=== PATIENT | male | born 2000 | race Caucasian/White ===

== ENCOUNTER 2019-01-28 23:06 | Emergency (ER) | payer OTHER ==
[~2019-01-28] VITALS: Ht 180.3 cm; Wt 68.0 kg
[~2019-01-28 23:06] MED LIST: ADVAIR 250-501 EACH INH; FLONASE 0.05%50 MCG NASAL; FLOVENT HFA 2220 MC1; NEXIUM; NEXIUM40 MG PO; OMEPRAZOLE20 M2; OMEPRAZOLE40 MG PO; ONDANSETRON HCL4 M2 PO; PATANASE30.5 GM; SINGULAIR; VENTOLIN HFA INH8 GM; ZYRTEC10 M2
[2019-01-29 00:05] LABS: ABSOLUTE LYMPHOCYTES 1.3 thou/uL (0.8-5.3); ABSOLUTE MONOCYTES 0.7 thou/uL (0.0-1.2); ABSOLUTE NEUTROPHILS 6.7 thou/uL (1.6-8.1); BASOPHILS 0.2 %; EOSINOPHILS 0.5 %; HEMATOCRIT 44.9 % (42.0-52.0); HEMOGLOBIN 15.9 gm/dL (14.0-18.0); LYMPHOCYTES 14.8 %; MCH 33.6 pg (26.0-34.0); MCHC 35.3 g/dL (28.0-37.0); MONOCYTES 7.7 %; MPV 7.4 fl. (7.2-11.1); NUCLEATED RBCS 0 /100WBC; PLATELET COUNT* 321 thou/uL (150-400); POLYS 76.8 %; RBC 4.73 mil/uL (4.50-6.00); RDW-CV 12.8 % (10.5-14.5); WBC 8.7 thou/uL (4.0-11.0)
[2019-01-29 00:10] LABS: CALCIUM 9.8 mg/dL (8.5-10.1); CREATININE 1.2 mg/dL (0.6-1.3); POTASSIUM 3.3 mmol/L (3.5-5.1)
[2019-01-29 00:14] LABS: ALBUMIN 4.1 g/dL (3.4-5.0); TOTAL BILIRUBIN 0.6 mg/dL (<0.1-1.0); TOTAL PROTEIN 8.8 g/dL (6.4-8.2)
[2019-01-29 00:27] LABS: URINE BILIRUBIN NEGATIVE (Negative); URINE BLOOD NEGATIVE (Negative); URINE CLARITY CLEAR; URINE COLOR YELLOW; URINE GLUCOSE-RANDOM NEGATIVE (Negative); URINE KETONES NEGATIVE (Negative); URINE LEUKOCYTES-REFLEX NEGATIVE (Negative); URINE NITRITE-REFLEX NEGATIVE (Negative); URINE PROTEIN 1+ (Negative); URINE SPECIFIC GRAVITY >= 1.030 (1.005-1.030); URINE UROBILINOGEN 0.2 E.U./dl (0.2-1.0)
[2019-01-29 01:30] LABS: ESR (SEDRATE) 32 mm/hr (0-15)
[2019-01-29 02:36] LABS: CSF CLARITY CLEAR; CSF COLOR COLORLESS; CSF RBC 1 /mm3; CSF WBC 1 /mm3 (0-10); VOLUME 7.5 ml
[2019-01-29 02:37] LABS: CSF GLUCOSE 70 mg/dl (40-70); CSF PROTEIN 31.4 mg/dl (15-45)
[2019-01-29 03:08] VITALS: BP 107/52
--- NOTE | 2019-01-29 11:23 | EKG ---
[place] [address] ELECTROCARDIOGRAM REPORT Name: RAEGAN CARSON Room: [facility]#: [id number] Admission: 01/28/19 Attend Phys: Discharge: 01/29/19 Date of : [birth year] Report #: [id number] THIS REPORT FOR: //name// [facility] ED Test Date: 2019-01-28 Test Time: 23:11:34 Pat Name: RAEGAN CARSON Department: Room: Gender: M Caddie: TRAN : 2000 Requested By: Maira Madison Order Number: [id number] Eliza MD: Zaheer Chowdhury Measurements Intervals [place] Rate: 86 P: 78 [place]: 156 QRS: 58 QRSD: 99 T: 46 QT: 351 QTc: 420 Interpretive Statements Sinus rhythm LAE, consider biatrial enlargement ST elev, probable normal early repol pattern Baseline wander in lead(s) V4 No previous ECG available for comparison Electronically Signed On 01-29-2019 11:23:29 CDT by Zaheer Chowdhury [email or web address] <ELECTRONICALLY SIGNED> By: Zaheer Chowdhury MD, [facility] 01/29/19 1123 10 10 Zaheer Chowdhury MD, FAC /EPI
[2019-01-30] MEDS ORDERED: BUTALB-APAP-CA1 EACH PO (19:08)
[2019-01-30] MEDS ORDERED: ZOFRAN ODT4 MG PO (20:19)
== END 2019-01-29 03:08 | disposition home or self-care (01) ==
LOC: M.ERS 23:06
PROVIDERS: Emergency Medicine
DX: G43.909 Migraine, unspecified, not intractable, without status migrainosus (principal); R50.9 Fever, unspecified; J45.909 Unspecified asthma, uncomplicated; K21.9 Gastro-esophageal reflux disease without esophagitis

== ENCOUNTER 2019-01-30 15:44 | Emergency (ER) | payer OTHER ==
[~2019-01-30] VITALS: Ht 180.3 cm; Wt 72.6 kg
[2019-01-30 17:10] LABS: ABSOLUTE LYMPHOCYTES 1.4 thou/uL (0.8-5.3); ABSOLUTE MONOCYTES 0.5 thou/uL (0.0-1.2); ABSOLUTE NEUTROPHILS 6.4 thou/uL (1.6-8.1); BASOPHILS 0.4 %; EOSINOPHILS 0.5 %; HEMATOCRIT 39.4 % (42.0-52.0); LYMPHOCYTES 16.6 %; MCH 33.5 pg (26.0-34.0); MCV 95.6 fL (80.0-100.0); MONOCYTES 6.2 %; MPV 6.9 fl. (7.2-11.1); NUCLEATED RBCS 0 /100WBC; PLATELET COUNT* 280 thou/uL (150-400); POLYS 76.3 %; RBC 4.12 mil/uL (4.50-6.00); RDW-CV 12.5 % (10.5-14.5); WBC 8.4 thou/uL (4.0-11.0)
[2019-01-30 17:11] LABS: HEMOGLOBIN 13.8 gm/dL (14.0-18.0)
[2019-01-30 17:25] LABS: CALCIUM 8.9 mg/dL (8.5-10.1); POTASSIUM 4.1 mmol/L (3.5-5.1)
[2019-01-30 17:30] LABS: ALBUMIN 3.2 g/dL (3.4-5.0); TOTAL BILIRUBIN 0.6 mg/dL (<0.1-1.0); TOTAL PROTEIN 7.1 g/dL (6.4-8.2)
[2019-01-30] MEDS ORDERED: BUTALB-APAP-CA1 EACH PO (19:08)
[2019-01-30] MEDS ORDERED: ZOFRAN ODT4 MG PO (20:19)
[2019-01-30 20:26] VITALS: BP 101/81
== END 2019-01-30 20:27 | disposition home or self-care (01) ==
LOC: M.ERS 15:44
PROVIDERS: Personal Emergency Response Attendant
DX: G43.909 Migraine, unspecified, not intractable, without status migrainosus (principal); J45.909 Unspecified asthma, uncomplicated; K21.9 Gastro-esophageal reflux disease without esophagitis

== ENCOUNTER 2019-02-06 11:39 | Emergency (ER) | payer OTHER ==
[~2019-02-06] VITALS: Ht 180.3 cm; Wt 63.5 kg
[~2019-02-06 11:39] MED LIST changes: +BUTALB-APAP-CA1 EACH PO; +ZOFRAN ODT4 MG PO
[2019-02-06 12:12] LABS: URINE BLOOD 1+ (Negative); URINE CLARITY CLEAR; URINE COLOR YELLOW; URINE GLUCOSE-RANDOM NEGATIVE (Negative); URINE KETONES TRACE (Negative); URINE LEUKOCYTES-REFLEX NEGATIVE (Negative); URINE NITRITE-REFLEX NEGATIVE (Negative); URINE PROTEIN 2+ (Negative); URINE SPECIFIC GRAVITY >= 1.030 (1.005-1.030)
[2019-02-06 12:14] LABS: ICTOTEST (BILI CONFIRMATORY) Negative (Negative); URINE BILIRUBIN 1+ (Negative)
[2019-02-06 12:22] LABS: BACTERIA-REFLEX 1-9 Few /HPF (None Seen); CRYSTALS None Seen /LPF (None Seen); FINE GRANULAR CASTS 0-3 Few /LPF (None Seen); MUCUS >6 Heavy strn/LPF (None Seen); SQUAMOUS 0-3 Few /LPF (0-3); URINE RBC 3-10 Few /HPF (0-2); URINE WBC-REFLEX 6-15 Few /HPF (0-5)
[2019-02-06 12:29] LABS: AMP/METHAMP Negative (Negative); BARBITURATES POSITIVE (Negative); BENZODIAZEPINES Negative (Negative); COCAINE Negative (Negative); METHADONE Negative (Negative); OPIATES Negative (Negative); PCP Negative (Negative); THC POSITIVE (Negative)
[2019-02-06 12:35] LABS: HEMATOCRIT 40.5 % (42.0-52.0); HEMOGLOBIN 14.2 gm/dL (14.0-18.0); MCH 32.9 pg (26.0-34.0); MCHC 35.1 g/dL (28.0-37.0); MCV 93.7 fL (80.0-100.0); MPV 6.7 fl. (7.2-11.1); NUCLEATED RBCS 0 /100WBC; PLATELET COUNT* 341 thou/uL (150-400); RBC 4.32 mil/uL (4.50-6.00); RDW-CV 12.4 % (10.5-14.5); WBC 13.9 thou/uL (4.0-11.0)
[2019-02-06 12:42] LABS: CALCIUM 9.6 mg/dL (8.5-10.1); CREATININE 1.3 mg/dL (0.6-1.3); POTASSIUM 3.6 mmol/L (3.5-5.1)
[2019-02-06 12:47] LABS: TOTAL BILIRUBIN 0.9 mg/dL (<0.1-1.0); TOTAL PROTEIN 8.4 g/dL (6.4-8.2)
[2019-02-06 12:54] LABS: ABSOLUTE LYMPHOCYTES 1.3 thou/uL (0.8-5.3); ABSOLUTE MONOCYTES 0.4 thou/uL (0.0-1.2); ABSOLUTE NEUTROPHILS 12.2 thou/uL (1.6-8.1); PLATELET ESTIMATE ADEQUATE
[2019-02-06 12:55] LABS: ANISOCYTOSIS 1+; POIKILOCYTOSIS 1+
[2019-02-06] MEDS ORDERED: LEVAQUIN 500 M500 MG PO (13:51)
[2019-02-06] MEDS ORDERED: TRAMADOL 50 MG50 MG PO (13:51)
[2019-02-06 14:02] VITALS: BP 109/47
== END 2019-02-06 14:02 | disposition home or self-care (01) ==
LOC: M.ERS 11:39
PROVIDERS: Emergency Medicine
DX: N39.0 Urinary tract infection, site not specified (principal); R19.7 Diarrhea, unspecified; J45.909 Unspecified asthma, uncomplicated; K21.9 Gastro-esophageal reflux disease without esophagitis; G43.909 Migraine, unspecified, not intractable, without status migrainosus; Z79.899 Other long term (current) drug therapy

== ENCOUNTER 2020-01-28 09:33 | Emergency (ER) | payer OTHER ==
[~2020-01-28] VITALS: Ht 180.3 cm; Wt 68.0 kg
[~2020-01-28 09:33] MED LIST changes: +LEVAQUIN 500 M500 MG PO; +TRAMADOL 50 MG50 MG PO
[2020-01-28] MEDS ORDERED: TRAMADOL 50 MG50 MG PO (10:05)
[2020-01-28 10:48] VITALS: BP 131/81
== END 2020-01-28 10:50 | disposition home or self-care (01) ==
LOC: M.ERS 09:33
DX: S86.812A Strain of other muscle(s) and tendon(s) at lower leg level, left leg, initial encounter (principal); J45.909 Unspecified asthma, uncomplicated; K21.9 Gastro-esophageal reflux disease without esophagitis; G43.909 Migraine, unspecified, not intractable, without status migrainosus; W22.8XXA Striking against or struck by other objects, initial encounter; Y93.89 Activity, other specified; Y92.89 Other specified places as the place of occurrence of the external cause; Y99.8 Other external cause status

== ENCOUNTER 2020-03-07 12:25 | Emergency (ER) | payer OTHER ==
[~2020-03-07] VITALS: Ht 180.3 cm; Wt 65.8 kg
[2020-03-07] MEDS ORDERED: OMEPRAZOLE 20 M20 M1 PO (12:39)
[2020-03-07 13:05] VITALS: BP 133/78
== END 2020-03-07 13:06 | disposition home or self-care (01) ==
LOC: M.ERS 12:25
DX: S00.93XA Contusion of unspecified part of head, initial encounter (principal); J45.909 Unspecified asthma, uncomplicated; G43.909 Migraine, unspecified, not intractable, without status migrainosus; K21.9 Gastro-esophageal reflux disease without esophagitis; Z79.899 Other long term (current) drug therapy; Z88.6 Allergy status to analgesic agent; W18.2XXA Fall in (into) shower or empty bathtub, initial encounter; Y93.89 Activity, other specified; Y92.89 Other specified places as the place of occurrence of the external cause; Y99.8 Other external cause status

== ENCOUNTER 2020-05-27 02:28 | Emergency (ER) | payer OTHER ==
[~2020-05-27] VITALS: Ht 180.3 cm; Wt 65.8 kg
[~2020-05-27 02:28] MED LIST changes: +OMEPRAZOLE 20 M20 M1 PO
[2020-05-27] MEDS ORDERED: ZOFRAN ODT4 MG PO (03:40)
[2020-05-27 05:50] VITALS: BP 110/68
--- NOTE | 2020-05-27 16:16 | EKG ---
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 05/27/20 1616 0240 0240 Antione Xavier MD, [facility] /EPI
== END 2020-05-27 05:50 | disposition home or self-care (01) ==
LOC: M.ERS 02:28
DX: G43.909 Migraine, unspecified, not intractable, without status migrainosus (principal); K21.9 Gastro-esophageal reflux disease without esophagitis; J45.909 Unspecified asthma, uncomplicated; Z88.8 Allergy status to other drugs, medicaments and biological substances

== ENCOUNTER 2021-03-06 23:06 | Emergency (ER) | payer OTHER ==
[~2021-03-06] VITALS: Ht 180.3 cm; Wt 72.6 kg
[2021-03-06] MEDS ORDERED: GABAPENTIN600 M1 PO (23:12)
[2021-03-07 00:06] VITALS: BP 143/78
--- NOTE | 2021-03-07 10:16 | EKG ---
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
== END 2021-03-07 00:07 | disposition home or self-care (01) ==
LOC: M.ERS 23:06
DX: R07.89 Other chest pain (principal); J45.909 Unspecified asthma, uncomplicated; K21.9 Gastro-esophageal reflux disease without esophagitis; G43.909 Migraine, unspecified, not intractable, without status migrainosus; Z79.899 Other long term (current) drug therapy; Z88.6 Allergy status to analgesic agent